=== PATIENT | male | born 2000 | race African-American/Black ===

== ENCOUNTER 2024-08-26 08:49 | Emergency (ER) | payer MEDICAID ==
[~2024-08-26] VITALS: Ht 177.8 cm; Wt 79.5 kg
[2024-08-26 09:12] VITALS: BP 129/80; O2SAT 100
[2024-08-26 09:34] LABS: HEMATOCRIT. 46.2 % (42.0-52.0); HEMOGLOBIN. 16.1 g/dL (14.0-18.0); MEAN CORPUSCULAR HGB CONC 34.8 g/dL (31.0-37.0); MEAN CORPUSCULAR VOLUME 88.8 fL (80.0-94.0); PLATELET 245 x1000/uL (130-400); RED CELL DISTRIBUTION WIDTH 13.8 % (11.6-14.6); WHITE BLOOD COUNT 7.9 x1000/uL (4.5-11.0)
[2024-08-26 09:37] LABS: CHLORIDE 109 mEq/L (98-107); POTASSIUM 4.3 mEq/L (3.5-5.1); SODIUM 142 mEq/L (136-145)
[2024-08-26 09:39] LABS: CARBON DIOXIDE 28 mEq/L (21-32)
[2024-08-26 09:40] LABS: CALCIUM 10.1 mg/dL (8.7-10.4)
[2024-08-26 09:40] LABS: CLARITY URINE CLEAR (CLEAR); COLOR URINE YELLOW (YELLOW); GLUCOSE URINE NEGATIVE (NEGATIVE); KETONES URINE TRACE (NEGATIVE); LEUKOCYTE ESTERASE URINE TRACE (NEGATIVE); NITRITE URINE NEGATIVE (NEGATIVE); OCCULT BLOOD URINE NEGATIVE (NEGATIVE); PH URINE 8.5 (4.5-8.0); PROTEIN URINE 1+ (NEGATIVE); SPECIFIC GRAVITY URINE 1.035 (1.005-1.030)
[2024-08-26 09:44] LABS: CREATININE 1.3 mg/dL (0.6-1.3); GLUCOSE 111 mg/dL (70-105)
[2024-08-26 09:45] LABS: UREA NITROGEN BLOOD 12 mg/dL (9-23)
[2024-08-26 09:46] LABS: ALANINE AMINOTRANSFERASE 14 IU/L (10-49); ALBUMIN 5.1 g/dL (3.2-4.8); ASPARTATE AMINOTRANSFERASE 21 IU/L (<34)
[2024-08-26 09:47] LABS: BILIRUBIN DIRECT 0.3 mg/dL (<=3.0); BILIRUBIN TOTAL 1.1 mg/dL (0.1-1.0)
[2024-08-26 09:48] LABS: DIFFERENTIAL COMMENT 1
[2024-08-26 10:00] LABS: BACTERIA URINE RARE; RBC URINE NONE SEEN /hpf (0-2); SQUAMOUS EPITHELIAL CELL URINE NONE SEEN /lpf (RARE/1+); WBC URINE 0-2 /hpf (0-2); YEAST URINE NONE SEEN
[2024-08-26 10:10] LABS: PLATELET ESTIMATE NORMAL
[2024-08-26] MEDS ORDERED: KETO15CR2 TP (10:17)
[2024-08-26] MEDS ORDERED: LOPE2CAP MT (10:17)
[2024-08-26] MEDS ORDERED: FAMO-135 MT (10:17)
[2024-08-26] MEDS ORDERED: ONDA4TAB50 MT (10:17)
[2024-08-26] MEDS: ONDANSETRON 4MG ODT PO ONE (10:45)
[2024-08-26] MEDS: FAMOTIDINE 20MG TABLET PO SCH (10:45)
[2024-08-26] MEDS: LOPERAMIDE HCL 2MG CAPSULE PO ONE (10:45)
[2024-08-26 10:48] VITALS: PULSE 70; RESP 18; TEMP 37.00296; O2SAT 100
== END 2024-08-26 10:47 | disposition home or self-care (01) ==
LOC: ER 08:49
DX: B36.0 Pityriasis versicolor (principal); K52.9 Noninfective gastroenteritis and colitis, unspecified; F17.200 Nicotine dependence, unspecified, uncomplicated; E86.0 Dehydration; F12.90 Cannabis use, unspecified, uncomplicated
CPT/HCPCS: 99284; 80076; 80048; 81003; 83690; 85025; 36415; Q0162